=== PATIENT | male | born 1945 | race Caucasian/White ===

== ENCOUNTER 2017-08-16 10:53 | Outpatient (CLI) | payer OTHER | END 2017-08-16 15:34 | disposition home or self-care (01) | LOC: RAD 10:53 | DX: J43.2 Centrilobular emphysema (principal); R06.02 Shortness of breath ==

== ENCOUNTER 2017-08-16 11:20 | Outpatient (CLI) | payer OTHER | END 2017-08-16 12:00 | disposition home or self-care (01) | LOC: NUCLEAR 11:20 | DX: J44.9 Chronic obstructive pulmonary disease, unspecified (principal); R06.02 Shortness of breath; J43.2 Centrilobular emphysema ==